=== PATIENT | female | born 1995 | race Two or more races ===

== ENCOUNTER 2020-05-11 10:09 | Emergency (ER) | payer BC ==
[~2020-05-11] VITALS: Ht 170.2 cm; Wt 75.0 kg
[2020-05-11 10:09] VITALS: BP 136/83
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
--- NOTE | 2020-05-11 10:47 | NUR ---
Brisa LEDEZMA at bedside to evaluate pt.
[2020-05-11 11:00] LABS: BASOPHILS # (AUTO) 0.01 x10^3/uL (0-0.1); BASOPHILS % (AUTO) 0 % (0-1); EOSINOPHILS # (AUTO) 0.09 x10^3/uL (0-0.4); EOSINOPHILS % (AUTO) 1 % (1-7); LYMPHOCYTES # (AUTO) 1.83 x10^3/uL (1-3.4); LYMPHOCYTES % (AUTO) 22 % (22-44); MD NO; MEAN CORPUSCULAR HGB CONC 33.2 g/dL (32.4-35.8); MEAN CORPUSCULAR VOLUME 90.3 fL (80-100); MONOCYTES # (AUTO) 0.45 x10^3/uL (0.2-0.8); MONOCYTES % (AUTO) 5 % (2-9); NEUTROPHILS # (AUTO) 5.85 x10^3/uL (1.8-6.8); NEUTROPHILS % (AUTO) 71 % (42-75); PLATELET COUNT 205 x10^3/uL (130-400); RED BLOOD COUNT 4.85 x10^6/uL (3.82-5.3); RED CELL DISTRIBUTION WIDTH 12.9 % (9.6-15.2)
[2020-05-11 11:11] LABS: ALBUMIN 4.1 g/dL (3.4-5.0); ANION GAP 7 mmol/L (5-15); CALCIUM 8.9 mg/dL (8.5-10.1); CHLORIDE 109 mmol/L (98-107); SALICYLATE LEVEL 3.2 mg/dL (2.8-20.0)
[2020-05-11 11:17] LABS: ALANINE AMINOTRANSFERASE 26 U/L (12-78); ALKALINE PHOSPHATASE 50 U/L (45-117); BILIRUBIN,TOTAL 0.4 mg/dL (0.2-1.0); CREATININE 0.82 mg/dL (0.55-1.02)
[2020-05-11] MEDS ORDERED: SERTRALINE 50MG TABLET ONE (11:47)
--- NOTE | 2020-05-11 11:52 | NUR ---
Pt medicated per DEC, denies other needs. Pt cleared for dc by Brisa LEDEZMA. All belongings returned to pt.
[2020-05-11] MEDS ORDERED: SERTRALINE 50MG TABLET PO ONE (12:00)
== END 2020-05-11 12:33 | disposition home or self-care (01) ==
LOC: ED 12:09
DX: F32.9 Major depressive disorder, single episode, unspecified (principal); R45.851 Suicidal ideations; R41.9 Unspecified symptoms and signs involving cognitive functions and awareness
CPT/HCPCS: 36415; 80053; 80307; 84443; 84703; 85025; 99284